=== PATIENT | male | born 1955 | race Hispanic/Latino ===

== ENCOUNTER 2022-09-29 11:48 | Emergency (ER) | payer MEDICARE, OTHER ==
[~2022-09-29] VITALS: Ht 165.1 cm; Wt 72.6 kg
[2022-09-29] MEDS ORDERED: VENTOLIN HFA18 GM INH (13:28)
[2022-09-29] MEDS ORDERED: PREDNISONE20 MG PO (13:28)
[2022-09-29] MEDS ORDERED: DOXYCYCLINE HY100 MG PO (13:28)
--- OUTSIDE RECORDS SUMMARY | 2022-09-29 13:38 | XMS ---
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 Jaylyn VISIT COUNT (12 MO.) [address] TOTAL 3 NOTE: Visits indicate total known visits. ED/UCC VISIT TRACKING (12 MO.) 09/29/2022 11:49 [facility] TYPE: Emergency COMPLAINT: - COUGH 09/25/2022 10:11 [facility] [place] TYPE: Emergency DIAGNOSES: - Influenza due to other identified influenza virus with other respiratory manifestations - COUGH 02/26/2022 15:23 [facility] [place] TYPE: Emergency DIAGNOSES: - Pain in right forearm - R ARM INJURY INPATIENT VISIT TRACKING (12 MO.) No inpatient visits to display in this time frame [email or web address]
== END 2022-09-29 13:37 | disposition home or self-care (01) ==
LOC: ED 11:48
DX: J10.1 Influenza due to other identified influenza virus with other respiratory manifestations (principal); I10 Essential (primary) hypertension; Z20.822 Contact with and (suspected) exposure to COVID-19
CPT/HCPCS: 71046; 87502; 94640; 99284-25; C9803; J7512; U0003